=== PATIENT | male | born 1975 | race Caucasian/White ===

== ENCOUNTER 2017-06-07 21:47 | Emergency (ER) | payer OTHER ==
[2017-06-07 21:51] VITALS: BP 136/76; PULSE 88; RESP 18; TEMP 97.4
--- NOTE | 2017-06-07 22:24 | ED ---
General Adult HPI - General Chief complaint: Skin/Abscess/Foreign Body Stated complaint: Rash Time Seen by Provider: 06/07/17 22:03 Source: patient, RN notes reviewed Mode of arrival: ambulatory Limitations: no limitations - History of Present Illness Initial comments: This is a 41-year-old male who presents to the emergency department with chief complaint of rash. Patient states he was seen here previously and was diagnosed with dermatitis. He was prescribed Atarax and steroids. Patient states that the rash began 3 weeks ago on his legs. He reports that today the rash has spread to his back and trunk. Patient states the rash is very itchy. He reports a history of eczema. Denies fever, chills, chest pain, shortness of breath, abdominal pain, nausea or vomiting, constipation or diarrhea, dysuria or hematuria, numbness or tingling, headache or vision changes. - Related Data Previous Rx's Medication Instructions Recorded hydrOXYzine HCL [Atarax] 10 mg PO TID #10 tab 05/28/17 predniSONE 50 mg PO DAILY #5 tab 05/28/17 Betamethasone Dipropionate 1 applic TOPICAL BID #1 tube 06/07/17 [Diprolene 0.05% Ointment] Allergies Allergy/AdvReac Type Severity Reaction Status Date / Time No Known Allergies Allergy Verified 06/07/17 21:50 Review of Systems ROS Statement: Those systems with pertinent positive or pertinent negative responses have been documented in the HPI. ROS Other: All systems not noted in ROS Statement are negative. Past Medical History Past Medical History: No Reported History History of Any Multi-Drug Resistant Organisms: None Reported Past Surgical History: No Surgical Hx Reported Past Psychological History: No Psychological Hx Reported Smoking Status: Never smoker Past Alcohol Use History: None Reported Past Drug Use History: None Reported General Exam - General Exam Comments Initial Comments: General: Awake and alert, well-developed; in no apparent distress. HEENT: Head atraumatic, normocephalic. Pupils are equal, round and reactive to light. Extraocular movements intact. Neck: Supple. Normal ROM. Cardiovascular: Regular rate and rhythm. No murmurs, rubs or gallops. Chest symmetrical. Respiratory: Lungs clear to auscultation bilaterally. No wheezes, rales or rhonchi. Normal respiratory effort with no use of accessory muscles. Skin: [place], warm and dry. Generalized erythematous, scaly maculopapular rash with overlying excoriations on bilateral lower extremities, back and trunk. Neurological: Alert and oriented x3. CN II-XII grossly intact. Speech is fluent and answers are appropriate. No focal neuro deficits. Psychiatric: Normal mood and affect. No overt signs of depression or anxiety noted. Limitations: no limitations Course Vital Signs 06/07/17 21:47 Temperature 97.4 F L Pulse Rate 88 Respiratory 18 Rate Blood Pressure 136/76 O2 Sat by Pulse 99 Oximetry Medical Decision Making - Medical Decision Making This is a 41-year-old male who presents with chief complaint of rash. Patient was seen here in the emergency department on 05/28/17 and was prescribed steroids and Atarax for itching. Patient has since followed up with primary care provider who refilled his prescriptions. Rash has been progressing and has not gotten any better with this treatment. Patient states that he is taking Benadryl but all it does is make him tired. Patient will be discharged home with a prescription for a topical steroid to be applied twice daily for the next 2 weeks. Patient informed that if no improvement is seen in 2 weeks that he is highly recommended to follow-up with dermatology. Patient is in agreement to the plan and voiced understanding. All questions were answered. Disposition Clinical Impression: Atopic dermatitis Disposition: HOME SELF-CARE Condition: Good Instructions: Eczema (ED) Additional Instructions: Please apply topical steroid two times per day for the next 2 weeks. After 2 weeks, if no improvement is seen please follow up with dermatology. Please follow up with primary care provider within 1-2 days. Return to emergency department if symptoms should worsen or any concerns arise. Prescriptions: Betamethasone Dipropionate [Diprolene 0.05% Ointment] 1 applic TOPICAL BID #1 tube Referrals: Del Roblero MD [Primary Care Provider] - 1-2 days Time of Disposition: 22:34
== END 2017-06-07 22:42 | disposition home or self-care (01) ==
LOC: EC 21:47
DX: L20.9 Atopic dermatitis, unspecified (principal)
CPT/HCPCS: 99282

== ENCOUNTER 2017-11-26 15:39 | Emergency (ER) | payer OTHER ==
--- NOTE | 2017-11-26 17:58 | CT ---
EXAMINATION TYPE: CT brain my [facility] DATE OF EXAM: 11/26/2017 COMPARISON: NONE HISTORY: Patient fell today. Probable LOC. Patient complains of headache and neck pain post fall. CT DLP: 1680 mGycm Automated exposure control for dose reduction was used. TECHNIQUE: CT scan of the head and cervical spine are performed without contrast. FINDINGS: There is no acute intracranial hemorrhage, mass effect, or midline shift identified. The ventricles and sulci are within normal limits in size. The globes are intact and the visualized sin uses are clear. Cervical spine is visualized in its entirety from C1 through upper thoracic levels and demonstrates s atisfactory alignment without evidence of acute fracture or dislocation. Prevertebral soft tissue ap pears within normal limits. The C1-C2 articulation is unremarkable. IMPRESSION: 1. There is no acute fracture or dislocation evident in the cervical spine. 2. No acute intracranial hemorrhage, mass effect, or midline shift is seen.
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
--- NOTE | 2017-11-26 18:57 | XR ---
PROCEDURE: XR thoracic spine complete, 3V DATE AND TIME: 11/26/2017 6:02 PM REFERRING PHYSICIAN: Nash Sparrow CLINICAL INDICATION: PHH, Pain TECHNIQUE: Department protocol. COMPARISON: None FINDINGS: There is no fracture or malalignment. The soft tissues are unremarkable. IMPRESSION: NO ACUTE PROCESS.
--- NOTE | 2017-11-26 18:58 | XR ---
PROCEDURE: XR lumbar spine 3V DATE AND TIME: 11/26/2017 6:02 PM REFERRING PHYSICIAN: Nash Sparrow CLINICAL INDICATION: PHH, Pain TECHNIQUE: Department protocol. COMPARISON: 04/17/2015 FINDINGS: There is no fracture or malalignment. The soft tissues are unremarkable. IMPRESSION: NO ACUTE PROCESS.
--- NOTE | 2017-11-26 19:00 | XR ---
PROCEDURE: XR ribs RT w pa chest xray, total 5 views DATE AND TIME: 11/26/2017 6:02 PM REFERRING PHYSICIAN: Nash Sparrow CLINICAL INDICATION: PHH, Pain TECHNIQUE: Department protocol. COMPARISON: None FINDINGS: There is no fracture or malalignment. The soft tissues are unremarkable. Lungs are clear an d the pleural spaces are negative. IMPRESSION: NO ACUTE PROCESS.
[2017-11-26 19:44] VITALS: BP 144/83; PULSE 81; RESP 16; TEMP 98.3
== END 2017-11-26 19:43 | disposition home or self-care (01) ==
LOC: EC 15:39
DX: M54.2 Cervicalgia (principal); R07.81 Pleurodynia; R51 Headache; M54.9 Dorsalgia, unspecified; R40.2412 Glasgow coma scale score 13-15, at arrival to emergency department; X39.8XXA Other exposure to forces of nature, initial encounter; Y93.89 Activity, other specified; Y92.89 Other specified places as the place of occurrence of the external cause
CPT/HCPCS: 70450; 72072; 72100; 72125; 99284

== ENCOUNTER 2018-06-24 06:53 | Emergency (ER) | payer OTHER ==
[2018-06-24 06:59] VITALS: RESP 18
--- NOTE | 2018-06-24 07:23 | ED ---
General Adult HPI - General Chief complaint: Extremity Problem,Nontraumatic Stated complaint: leg pain Time Seen by Provider: 06/24/18 07:11 Source: patient, RN notes reviewed Mode of arrival: ambulatory Limitations: no limitations - History of Present Illness Initial comments: Patient is a pleasant 43-year-old male presenting to the emergency Department with complaints of left leg discomfort. Onset of symptoms was yesterday evening. Discomfort has been steady. No injury to the affected area. Patient states discomfort is left lateral upper thigh. Discomfort is somewhat improved with movement. Discomfort is rated 8/10. No rash. No swelling. No fever. No trauma. No weakness. No back pain. - Related Data Home Medications Medication Instructions Recorded Confirmed Ibuprofen [Motrin Ib] 400 mg PO Q6H PRN 06/24/18 06/24/18 Previous Rx's Medication Instructions Recorded Cyclobenzaprine [Flexeril] 10 mg PO TID PRN #12 tablet 06/24/18 Allergies Allergy/AdvReac Type Severity Reaction Status Date / Time No Known Allergies Allergy Verified 06/24/18 08:13 Review of Systems ROS Statement: Those systems with pertinent positive or pertinent negative responses have been documented in the HPI. ROS Other: All systems not noted in ROS Statement are negative. Constitutional: Denies: fever Eyes: Denies: eye pain ENT: Denies: ear pain Respiratory: Denies: cough, dyspnea Cardiovascular: Denies: chest pain Endocrine: Denies: fatigue Gastrointestinal: Denies: abdominal pain Genitourinary: Denies: dysuria Musculoskeletal: Denies: back pain Skin: Denies: rash, lesions Neurological: Denies: headache Past Medical History Past Medical History: No Reported History History of Any Multi-Drug Resistant Organisms: None Reported Past Surgical History: No Surgical Hx Reported Past Psychological History: Depression, PTSD Smoking Status: Never smoker Past Alcohol Use History: None Reported Past Drug Use History: None Reported General Exam Limitations: no limitations General appearance: alert, in no apparent distress Head exam: Present: atraumatic Eye exam: Present: normal appearance, PERRL ENT exam: Present: normal oropharynx Neck exam: Present: normal inspection Respiratory exam: Present: normal lung sounds bilaterally Cardiovascular Exam: Present: regular rate, normal rhythm Expanded Peripheral pulses: 2+: Dorsalis Pedis (R), Dorsalis Pedis (L) GI/Abdominal exam: Present: soft. Absent: tenderness Extremities exam: Present: full ROM, tenderness (Mild tenderness left lateral thigh.), other (No swelling. No erythema.). Absent: pedal edema, calf tenderness Back exam: Present: normal inspection. Absent: tenderness, vertebral tenderness Neurological exam: Present: alert. Absent: motor sensory deficit Psychiatric exam: Present: normal affect, normal mood Skin exam: Present: normal color Course Vital Signs 06/24/18 06/24/18 06:56 10:06 Temperature 97.9 F 98 F Pulse Rate 71 68 Respiratory 18 18 Rate Blood Pressure 114/77 114/84 O2 Sat by Pulse 100 97 Oximetry Disposition Clinical Impression: Leg pain Disposition: HOME SELF-CARE Instructions: Leg Pain (ED) Prescriptions: Cyclobenzaprine [Flexeril] 10 mg PO TID PRN #12 tablet PRN Reason: Pain Is patient prescribed a controlled substance at d/c from ED?: No Referrals: Del Roblero MD [Primary Care Provider] - 1-2 days
--- NOTE | 2018-06-24 08:02 | XR ---
EXAMINATION TYPE: XR femur LT DATE OF EXAM: 06/24/2018 CLINICAL HISTORY: Pain. TECHNIQUE: Two views of the left femur are obtained. COMPARISON: None FINDINGS: There is no acute fracture or dislocation seen in the left femur. The left hip and knee j oints appear within normal limits. The overlying soft tissue appears unremarkable. IMPRESSION: Unremarkable study.
--- NOTE | 2018-06-24 09:01 | US ---
EXAMINATION TYPE: US venous doppler duplex LE LT DATE OF EXAM: 06/24/2018 8:39 AM COMPARISON: NONE CLINICAL HISTORY: Pain. Left lateral posterior thigh pain today; denies swelling and trauma SIDE PERFORMED: Left TECHNIQUE: The lower extremity deep venous system is examined utilizing real time linear array sonog terrence with graded compression, doppler sonography and color-flow sonography. VESSELS IMAGED: Common Femoral Vein Deep Femoral Vein Greater Saphenous Vein * Femoral Vein: dual femoral vein noted upper left Popliteal Vein Small Saphenous Vein * Proximal Calf Veins (* superficial vessels) Left Leg: Negative for DVT IMPRESSION: 1. No evidence for DVT.
[2018-06-24] MEDS ORDERED: ORPHENADRINE 30 MG/ML 2 ML VIAL IM STA (09:21)
[2018-06-24 10:07] VITALS: BP 114/84; PULSE 68; TEMP 98
== END 2018-06-24 10:07 | disposition home or self-care (01) ==
LOC: EC 06:53
DX: M79.605 Pain in left leg (principal)
CPT/HCPCS: 96372; 99284

== ENCOUNTER 2019-02-11 09:34 | Emergency (ER) | payer OTHER ==
[2019-02-11 09:47] VITALS: BP 98/64; PULSE 70; RESP 18; TEMP 98
[2019-02-11] MEDS ORDERED: KETOROLAC 30 MG/ML 1 ML VIAL IM STA (10:09)
--- NOTE | 2019-02-11 10:11 | ED ---
General Adult HPI - General Chief complaint: Extremity Injury, Lower Stated complaint: Ankle Injury Time Seen by Provider: 02/11/19 10:01 Source: patient Mode of arrival: wheelchair Limitations: no limitations - History of Present Illness Initial comments: Patient is a 43-year-old male presents emergency department for left ankle pain. Patient reports she was playing softball last night when he slid into second base and rolled his ankle. Patient reports edema but denies erythema or skin discoloration. She reports pain is exacerbated with any movement or weightbearing and alleviated at rest. Patient has limited range of motion due to pain. Patient denies any numbness or tingling. Patient reports pain is an 8 and throbbing. Patient reports taking 2 tramadol to alleviate the symptoms. - Related Data Home Medications Medication Instructions Recorded Confirmed Ibuprofen [Motrin Ib] 400 mg PO Q6H PRN 06/24/18 06/24/18 Previous Rx's Medication Instructions Recorded Cyclobenzaprine [Flexeril] 10 mg PO TID PRN #12 tablet 06/24/18 Allergies Allergy/AdvReac Type Severity Reaction Status Date / Time No Known Allergies Allergy Verified 02/11/19 09:44 Review of Systems ROS Statement: Those systems with pertinent positive or pertinent negative responses have been documented in the HPI. ROS Other: All systems not noted in ROS Statement are negative. Past Medical History Past Medical History: No Reported History History of Any Multi-Drug Resistant Organisms: None Reported Past Surgical History: No Surgical Hx Reported Past Psychological History: Anxiety, Depression, PTSD Smoking Status: Never smoker Past Alcohol Use History: None Reported Past Drug Use History: None Reported General Exam - General Exam Comments Initial Comments: General: Well-developed well-nourished distress HEENT: Normocephalic/atraumatic, PERLL, pharynx erythema, swallowing well, EAC no erythema, no exudates, TM clear, no cervical lymph nodes Neck: Supple, nontender, trachea midline Chest/Lungs: Normal respirations, no signs of respiratory distress clear to auscultation bilaterally no wheezes, rales, rhonchi Cardiac: Regular rate and rhythm, normal S1-S2, no murmurs rubs or gallops Abdomen/GI: Soft nontender, bowel sounds equal or quadrant x4, no guarding, no rebound no CVA tenderness Musculoskeletal: Tenderness along the left lateral and medial malleoli. No midfoot tenderness. +2 dorsalis pedis and posterior tibialis bilaterally, limited range of motion due to pain, left ankle edema but no erythema or skin discoloration. Skin: [place], no rashes or lesions, no cyanosis or diaphoresis Neurologic: AAO x 3, CN 2-12 intact, Psychiatric: Mood and affect normal, judgment normal Limitations: no limitations Course Vital Signs 02/11/19 09:44 Temperature 98.0 F Pulse Rate 70 Respiratory 18 Rate Blood Pressure 98/64 O2 Sat by Pulse 98 Oximetry Procedures - Orthopedic Splinting/Casting Injury #1 Side: left Lower Extremity Injury Location: ankle Lower Extremity Immobilizer: stirrup splint (Plastic ankle stirrup.), Abel wrap Other Orthopedic Equipment: crutches Medical Decision Making - Medical Decision Making Patient is a 42-year-old male presenting to emergency Department with left ankle pain. X-ray of the left ankle is negative for acute fractures or dislocations but it does show a possible old ankle injury in the deltoid ligament region. Abel wrap and stirrup for placed. Patient advised to keep ice compress and alternate between Tylenol and ibuprofen for pain control. Patient advised to keep foot elevated. Patient advised to follow-up with an male infertility specialist. Strict return parameters were thoroughly discussed the patient was understanding and agreeable. Case discussed with physician. Disposition Clinical Impression: Ankle sprain Disposition: HOME SELF-CARE Condition: Stable Instructions (If sedation given, give patient instructions): Ankle Sprain (ED) Additional Instructions: Please follow with male infertility specialist. Please return to emergency department if symptoms worsen. Alternate between Tylenol and ibuprofen for pain control. Keep ice compress to minimize swelling and keep foot elevated. Use crutches and avoid weightbearing. Is patient prescribed a controlled substance at d/c from ED?: No Referrals: Del Roblero MD [Primary Care Provider] - 1-2 days Adelso Segovia MD [STAFF PHYSICIAN] - 1-2 days Time of Disposition: 10:42
--- NOTE | 2019-02-11 10:24 | XR ---
EXAMINATION TYPE: XR ankle complete LT , 3 VIEWS DATE OF EXAM ORDERED: 02/11/2019 HISTORY: Pain. COMPARISON: None. FINDINGS: There is soft tissue swelling about the ankle. There is slight cortical irregularity at th e expected location of the deltoid ligament. This may relate to previous injury. No acute fracture or dislocation is seen. No ankle joint effusion is seen. IMPRESSION: 1. NO ACUTE OSSEOUS LESION. QUESTIONABLE OLD INJURY.
== END 2019-02-11 10:57 | disposition home or self-care (01) ==
LOC: EC 09:34
DX: S93.402A Sprain of unspecified ligament of left ankle, initial encounter (principal); X50.1XXA Overexertion from prolonged static or awkward postures, initial encounter; Y93.64 Activity, baseball
CPT/HCPCS: 73610; 99283; 29515; 96372; L4350; J1885

== ENCOUNTER 2019-02-11 21:41 | Emergency (ER) | payer OTHER ==
[2019-02-11] MEDS ORDERED: ACET/COD 300 MG/30 MG STARTER PACK 6 TAB BTL PO STA (21:59)
--- NOTE | 2019-02-11 22:01 | ED ---
Lower Extremity Injury HPI - General Chief Complaint: Extremity Injury, Lower Stated Complaint: Ankle injury Time Seen by Provider: 02/11/19 21:50 Source: patient, family Mode of arrival: ambulatory Limitations: no limitations - History of Present Illness Initial Comments: 43-year-old male patient presents to the emergency department today for evaluation of increasing swelling and ecchymosis to the left ankle. Patient was seen and evaluated here earlier today was diagnosed with a sprained ankle. Patient did have x-rays performed which showed no evidence for fracture. Patient states that he had increase in pain and noticed bruising developing along the foot so presented here for reevaluation. Patient states he has been wearing the Abel wrap, splint, and elevating. Patient is taking ibuprofen but states it doesn't seem to help much. He denies any new injury. States he has been remaining nonweightbearing. Has had a previous sprain with tendon damage in the past. Patient denies any headache, neck pain, back pain, chest pain, shortness of breath, dizziness, weakness, abdominal pain, nausea, vomiting, or difficulties with bowel movements or urination. - Related Data Home Medications Medication Instructions Recorded Confirmed traMADol HCL [Ultram] 50 mg PO DAILY PRN 02/11/19 02/11/19 Allergies Allergy/AdvReac Type Severity Reaction Status Date / Time No Known Allergies Allergy Verified 02/11/19 22:29 Review of Systems ROS Statement: Those systems with pertinent positive or pertinent negative responses have been documented in the HPI. ROS Other: All systems not noted in ROS Statement are negative. Past Medical History Past Medical History: No Reported History History of Any Multi-Drug Resistant Organisms: None Reported Past Surgical History: No Surgical Hx Reported Past Psychological History: Anxiety, Depression, PTSD Smoking Status: Never smoker Past Alcohol Use History: None Reported Past Drug Use History: None Reported General Exam Limitations: no limitations General appearance: alert, in no apparent distress, other (Physical well- developed, well-nourished adult male patient in no acute distress. Vital signs upon presentation are temperature 98.8F, pulse 82, respirations 20, blood pressure 121/78, pulse ox 100% on room air.) Eye exam: Present: normal appearance, PERRL, EOMI. Absent: scleral icterus, conjunctival injection, periorbital swelling ENT exam: Present: normal exam, normal oropharynx, mucous membranes moist Respiratory exam: Present: normal lung sounds bilaterally. Absent: respiratory distress, wheezes, rales, rhonchi, stridor Cardiovascular Exam: Present: regular rate, normal rhythm, normal heart sounds. Absent: systolic murmur, diastolic murmur, rubs, gallop, clicks Extremities exam: Present: full ROM, tenderness (Tenderness over the medial lateral malleolus), normal capillary refill, other (Patient has generalized swelling surrounding the left ankle. There is ecchymosis noted along the medial aspect of the ankle. Skin is otherwise pink, warm, and dry. Cap refills less than 3 seconds. Pedal pulses are 2+ and equal bilaterally.). Absent: normal inspection, pedal edema, joint swelling, calf tenderness Neurological exam: Present: alert, oriented X3, CN II-XII intact Psychiatric exam: Present: normal affect, normal mood Skin exam: Present: warm, dry, intact, normal color. Absent: rash Course Vital Signs 02/11/19 02/11/19 21:43 22:26 Temperature 98.8 F 98 F Pulse Rate 82 77 Respiratory 20 18 Rate Blood Pressure 121/78 120/75 O2 Sat by Pulse 100 98 Oximetry Medical Decision Making - Medical Decision Making 43-year-old male patient presents to the emergency department today for evaluation of increasing swelling, pain, bruising to the left ankle. Physical examination did reveal swelling surrounding the left medial lateral malleolus. There is ecchymosis noted along the medial aspect of the ankle. There is no proximal tib-fib tenderness. Neurovascular status is intact. X-ray from earlier today was reviewed and showed no evidence for fracture. Patient does have ankle stirrup splint and Abel wrap in place. He is given a prescription for crutches. Patient has been taking ibuprofen. I did discuss that the moment of bruising is not abnormal with his diagnosis. He has educated regarding rest, ice, elevation. He is instructed to follow-up with orthopedics as directed. We'll add Tylenol with Codeine starter pack for increased pain control. Return parameters were discussed in detail. He verbalizes understanding and agrees with this plan. Disposition Clinical Impression: Left ankle sprain Disposition: HOME SELF-CARE Condition: Good Instructions (If sedation given, give patient instructions): Ankle Sprain (ED), R.I.C.E. Treatment (ED) Additional Instructions: Wear splint for comfort and support. Keep leg elevated, rest, ice. Take Tylenol Motrin for pain control. Take Tylenol 3 sparingly as needed for severe pain. Follow-up with orthopedics for further evaluation as soon as possible. Have repeat x-ray performed in 7-10 days if pain symptoms persist. Return to the emergency department immediately for any new, worsening, or concerning symptoms. Is patient prescribed a controlled substance at d/c from ED?: No Referrals: Del Roblero MD [Primary Care Provider] - 1-2 days Adelso Segovia MD [STAFF PHYSICIAN] - 1-2 days Time of Disposition: 22:00
[2019-02-11 22:26] VITALS: BP 120/75; PULSE 77; RESP 18; TEMP 98
== END 2019-02-11 22:30 | disposition home or self-care (01) ==
LOC: EC 21:41
DX: S93.402A Sprain of unspecified ligament of left ankle, initial encounter (principal); X58.XXXA Exposure to other specified factors, initial encounter
CPT/HCPCS: 99283

== ENCOUNTER 2019-04-12 18:03 | Emergency (ER) | payer OTHER ==
[2019-04-12 18:22] VITALS: RESP 18
[2019-04-12] MEDS ORDERED: KETOROLAC 60 MG/2 ML VIAL IM STA (18:44)
--- NOTE | 2019-04-12 19:08 | XR ---
EXAMINATION TYPE: XR lumbar spine 2 or 3V DATE OF EXAM: 04/12/2019 COMPARISON: 11/26/2017 HISTORY: Lifting injury. Pain TECHNIQUE: 3 views FINDINGS: Lumbar vertebra have normal alignment. Posterior elements are intact. Sacroiliac joints are intact. IMPRESSION: Negative lumbar spine exam. No change.
--- NOTE | 2019-04-12 20:04 | ED ---
General Adult HPI - General Chief complaint: Back Pain/Injury Stated complaint: back pain Time Seen by Provider: 04/12/19 18:29 Source: patient, RN notes reviewed, old records reviewed Limitations: no limitations - History of Present Illness Initial comments: 43-year-old male patient with no pertinent past medical history: Presents to ED with chief complaint of left paralumbar back pain radiating down in his posterior left leg. Patient reports that he was helping a coworker lift a heavy spring he felt no pain, however directly after he began feeling tightness and pain in left paralumbar region. Patient denies any loss of bowel or bladder control, lower extremity weakness, saddle anesthesia. Patient denies any other complaints at this time. Systemic: Pt denies fatigue, fever/chills, rash. Pt denies weakness, night sweats, weight loss. Neuro: Pt denies headache, visual disturbances, syncope or pre-syncope. HEENT: Pt denies ocular discharge or irritation, otalgia, rhinorrhea, pharyngitis or notable lymphadenopathy. Cardiopulmonary: Pt denies chest pain, SOB, heart palpitations, dyspnea on exertion. Abdominal/GI: Pt denies abdominal pain, n/v/d. : Pt denies dysuria, burning w/ urination, frequency/urgency. Denies new onset urinary or bowel incontinence. MSK: Pt denies loss of strength or function in extremities. Neuro: Pt denies new onset weakness. - Related Data Home Medications Medication Instructions Recorded Confirmed traMADol HCL [Ultram] 50 mg PO DAILY PRN 02/11/19 02/11/19 Previous Rx's Medication Instructions Recorded Cyclobenzaprine [Flexeril] 1 - 2 tab PO TID PRN #20 tablet 04/12/19 Ibuprofen [Motrin] 600 mg PO Q6HR PRN #40 day 04/12/19 predniSONE 50 mg PO DAILY #5 tab 04/12/19 Allergies Allergy/AdvReac Type Severity Reaction Status Date / Time No Known Allergies Allergy Verified 04/12/19 18:19 Review of Systems ROS Statement: Those systems with pertinent positive or pertinent negative responses have been documented in the HPI. ROS Other: All systems not noted in ROS Statement are negative. Past Medical History Past Medical History: No Reported History History of Any Multi-Drug Resistant Organisms: None Reported Past Surgical History: No Surgical Hx Reported Past Psychological History: Anxiety, Depression, PTSD Smoking Status: Never smoker Past Alcohol Use History: None Reported Past Drug Use History: None Reported General Exam - General Exam Comments Initial Comments: Constitutional: NAD, AOX3, Pt has pleasant affect. HEENT: NC/AT, trachea midline, neck supple, no lymphadenopathy. Posterior pharynx non erythematous, without exudates. External ears appear normal, without discharge. Mucous membranes moist. Eyes PERRLA, EOM intact. There is no scleral icterus. No pallor noted. Cardiopulmonary: RRR, no murmurs, rubs or gallops, no JVD noted. Lungs CTAB in anterior and posterior castrejon. No peripheral edema. Abdominal exam: Abdomen soft and non-distended. Abdomen non-tender to palpation in all 4 quadrants. Bowel sounds active in LLQ. No hepatosplenomegaly. No ecchymosis Neuro: CN II-XII grossly intact. No nuchal rigidity. No raccon eyes, no arzola sign, no hemotympanum. No cervical spinal tenderness. MSK: 5 out of 5 strength lower extremities bilaterally. Sensation intact. Ambulatory without difficulty. Left paralumbar region mildly tender to palpation. No posterior calf tenderness bilaterally, homans sign negative bilaterally. Posterior tibialis and radial pulse +2 bilaterally. Sensation intact in upper and lower extremities. Full active ROM in upper and lower extremities, 5/5 stregnth. Limitations: no limitations Course Vital Signs 04/12/19 18:19 Temperature 98.3 F Pulse Rate 91 Respiratory 18 Rate Blood Pressure 113/80 O2 Sat by Pulse 98 Oximetry Medical Decision Making - Medical Decision Making 43-year-old male patient with no pertinent past medical history: Presents to ED with chief complaint of left paralumbar back pain radiating down in his posterior left leg. Patient reports that he was helping a coworker lift a heavy spring he felt no pain, however directly after he began feeling tightness and pain in left paralumbar region. Patient denies any loss of bowel or bladder control, lower extremity weakness, saddle anesthesia. Patient denies any other complaints at this time. Pt VSS, afebrile. Physical exam displayed: 5 out of 5 strength lower extremities bilaterally. Sensation intact. Ambulatory without difficulty. Left paralumbar region mildly tender to palpation. Plain film of lumbar spine didn't display acute process. Patient was discharged with muscle relaxers, burst steroids, and will use ibuprofen at home. Patient is already established [facility] issues and will follow up with them. From precautions discussed. Case discussed with Dr. Hogan. Disposition Clinical Impression: Lumbar back pain Disposition: HOME SELF-CARE Condition: Stable Instructions (If sedation given, give patient instructions): Acute Low Back Pain (ED) Additional Instructions: Patient to adhere to previously discussed treatment plan and will take medication(s) as directed. Patient to follow up with PCP in 1-2 days. Patient to return to ED if symptoms do not improve. Follow-up [facility] tomorrow, take medication as directed. Return to ER if condition worsens. Prescriptions: Cyclobenzaprine [Flexeril] 1 - 2 tab PO TID PRN #20 tablet PRN Reason: muscle spasm Ibuprofen [Motrin] 600 mg PO Q6HR PRN #40 day PRN Reason: Pain predniSONE 50 mg PO DAILY #5 tab Is patient prescribed a controlled substance at d/c from ED?: No Referrals: Shemar Norton MD [Primary Care Provider] - 1-2 days Reagan Calle MD [STAFF PHYSICIAN] - 1-2 days
[2019-04-12 20:41] VITALS: BP 113/64; PULSE 70; TEMP 98.5
== END 2019-04-12 20:40 | disposition home or self-care (01) ==
LOC: EC 18:03
DX: M54.5 Low back pain (principal); M79.605 Pain in left leg; X50.0XXA Overexertion from strenuous movement or load, initial encounter; Y93.89 Activity, other specified
CPT/HCPCS: 72100; 99284; 96372; J1885

== ENCOUNTER → 2019-05-27 | Outpatient (CLI) | payer OTHER ==
[2019-05-27 11:18] LABS: Basophils # (A) 0.1 k/uL (0-0.2); Basophils % (A) 1 %; Eosinophils # (A) 0.2 k/uL (0-0.7); Eosinophils % (A) 3 %; HCT 45.7 % (39.0-53.0); HGB 15.5 gm/dL (13.0-17.5); Lymphocytes # (A) 1.6 k/uL (1.0-4.8); Lymphocytes % (A) 23 %; MCH 30.4 pg (25.0-35.0); MCV 89.5 fL (80.0-100.0); Mean Platelet Volume 6.3; Monocytes # (A) 0.4 k/uL (0-1.0); Monocytes % (A) 6 %; Neutrophils # (A) 4.7 k/uL (1.3-7.7); Neutrophils % (A) 65 %; Platelet Count 267 k/uL (150-450); RDW 12.2 % (11.5-15.5); WBC 7.2 k/uL (3.8-10.6)
[2019-05-27 17:50] LABS: African American GFR (CKD) 106.4 (60.0-200.0); Albumin 4.6 g/dL (3.80-4.90); Albumin/Globulin Ratio 2.09 (1.60-3.17); Anion Gap 9.1 mmol/L (4.00-12.00); Calcium 9.3 mg/dL (8.7-10.3); Carbon Dioxide 27.9 mmol/L (21.6-31.8); Chol/HDL Ratio 4.7; Globulin 2.2 g/dL (1.6-3.3); LDL Cholesterol,Calculated 110.2 mg/dL (0.0-131.0); Potassium 4.4 mmol/L (3.5-5.5); Total Bilirubin 0.9 mg/dL (0.2-1.2); Total Protein 6.8 g/dL (6.2-8.2); VLDL Calculation 26.8 mg/dL (5.00-40.00)
[2019-05-27 18:48] LABS: Hemoglobin A1C 5.7 % (4.0-6.0)
== END | disposition home or self-care (01) ==
LOC: LABWHC1 09:40
PROVIDERS: ATTEND Physician Assistant
DX: Z00.00 Encounter for general adult medical examination without abnormal findings (principal); Z13.1 Encounter for screening for diabetes mellitus
CPT/HCPCS: 36415; 80053; 80061; 83036; 84439; 84443; 85025

== ENCOUNTER 2019-08-20 22:18 | Emergency (ER) | payer OTHER ==
[2019-08-20] MEDS ORDERED: ACETAMINOPHEN TAB 500 MG TAB PO STA (23:44)
[2019-08-20] MEDS ORDERED: ONDANSETRON ODT 4 MG TAB PO STA (23:56)
--- NOTE | 2019-08-21 00:17 | ED ---
General Adult HPI - General Chief complaint: Nausea/Vomiting/Diarrhea Stated complaint: Fever, Vomiting Time Seen by Provider: 08/20/19 23:41 Source: patient Mode of arrival: ambulatory Limitations: no limitations - History of Present Illness Initial comments: Dictation was produced using [employer] dictation software. please excuse any grammatical, word or spelling errors. Chief Complaint: 44-year-old male with a runny nose and fever. History of Present Illness: 44-year-old male presents today with fever since last night. Today he felt like his symptoms are getting worse. He had just gotten home from [employer] after he was shopping with dizziness and other. He states he did not feel well went home felt like "dog dung." Patient has been around other sick individuals. Denies any medical problems. Denies any chest pain. No shortness of breath. Has mild cough. Does have some sore throat. He was an individual who had strep throat that he was recently exposed to. The ROS documented in this emergency department record has been reviewed and confirmed by me. Those systems with pertinent positive or negative responses gordon ve been documented in the HPI. All other systems are other negative and/or noncontributory. PHYSICAL EXAM: General Impression: Alert and oriented x3, not in acute distress HEENT: Normocephalic atraumatic, extra-ocular movements intact, pupils equal and reactive to light bilaterally, mucous membranes moist, mild posterior oropharynx erythema, rhinorrhea Cardiovascular: Heart regular rate and rhythm, S1&S2 audible, no murmurs, rubs or gallops Chest: Lungs clear to auscultation bilaterally, no rhonchi, no wheeze, no rales Abdomen: Bowel sounds present, abdomen soft, non-tender, non-distended, no organomegaly Musculoskeletal: Pulses present and equal in all extremities, no peripheral edema Motor: no focal deficits noted Neurological: CN II-XII grossly intact, no focal motor or sensory deficits noted Skin: Intact with no visualized rashes Psych: Normal affect and mood ED course: 44-year-old male with URI type symptoms. vital signs upon arrival shows temperature 101.0, heart rate 1:15, worse vital signs with acceptable limits. Influenza test negative. Group A strep is negative. Chest x-ray is nonacute. Patient reevaluated at bedside after given antipyretics with improvement of v ital signs. Patient's clinical presentation likely secondary to viral URI. Patient advised to take [id number] antipyretics for symptoms. He is told this maintained good hydration. Otherwise he is advised to follow-up with primary care physician. Patient told to return to emergency department or seek medical attention if his symptoms get worse. Some agreeable to plan. Patient discharged. - Related Data Home Medications Medication Instructions Recorded Confirmed traMADol HCL [Ultram] 50 mg PO DAILY PRN 02/11/19 02/11/19 Previous Rx's Medication Instructions Recorded Cyclobenzaprine [Flexeril] 1 - 2 tab PO TID PRN #20 tablet 04/12/19 Ibuprofen [Motrin] 600 mg PO Q6HR PRN #40 day 04/12/19 predniSONE 50 mg PO DAILY #5 tab 04/12/19 Allergies Allergy/AdvReac Type Severity Reaction Status Date / Time No Known Allergies Allergy Verified 08/20/19 22:38 Review of Systems ROS Statement: Those systems with pertinent positive or pertinent negative responses have been documented in the HPI. ROS Other: All systems not noted in ROS Statement are negative. Past Medical History Past Medical History: No Reported History History of Any Multi-Drug Resistant Organisms: None Reported Past Surgical History: No Surgical Hx Reported Past Psychological History: Anxiety, Depression, PTSD Smoking Status: Never smoker Past Alcohol Use History: None Reported Past Drug Use History: None Reported General Exam Limitations: no limitations Course Vital Signs 08/20/19 08/21/19 22:35 01:05 Temperature 101.0 F H 99.6 F Pulse Rate 115 H 93 Respiratory 20 18 Rate Blood Pressure 108/67 113/56 O2 Sat by Pulse 97 96 Oximetry Medical Decision Making - Lab Data Lab Results 08/20/19 08/21/19 Range/Units 23:23 00:05 Influenza Type A RNA Not Detected (Not Detectd) Influenza Type B (PCR) Not Detected (Not Detectd) Group A Strep Rapid Negative (Negative) Disposition Clinical Impression: URI (upper respiratory infection) Disposition: HOME SELF-CARE Condition: Good Instructions (If sedation given, give patient instructions): Viral Syndrome (ED) Is patient prescribed a controlled substance at d/c from ED?: No Referrals: None,Stated [Primary Care Provider] - 1-2 days Time of Disposition: 01:33
[2019-08-21 01:06] VITALS: BP 113/56; PULSE 93; RESP 18; TEMP 99.6
--- NOTE | 2019-08-21 01:22 | XR ---
EXAMINATION TYPE: XR chest 2V DATE OF EXAM: 08/21/2019 COMPARISON: 11/26/2017 HISTORY: Fever TECHNIQUE: FINDINGS: Heart and mediastinum are normal. Lungs are clear. Diaphragm is normal. Bony thorax appears normal. IMPRESSION: Normal chest. No change.
== END 2019-08-21 01:54 | disposition home or self-care (01) ==
LOC: EC 22:18
DX: J06.9 Acute upper respiratory infection, unspecified (principal)
CPT/HCPCS: 71046; 87081; 87430; 87502; 99284

== ENCOUNTER 2020-09-13 19:12 | Emergency (ER) | payer OTHER ==
[2020-09-13 19:17] VITALS: BP 123/89; PULSE 75; RESP 18; TEMP 98.3
--- NOTE | 2020-09-13 19:51 | XR ---
EXAMINATION TYPE: XR foot complete LT DATE OF EXAM: 09/13/2020 COMPARISON: NONE HISTORY: Pain TECHNIQUE: 3 views FINDINGS: Metatarsals are intact. I see no fracture nor dislocation. Joint spaces are normal. There a re no erosions. IMPRESSION: Negative left foot exam.
--- NOTE | 2020-09-13 20:08 | ED ---
Extremity Problem HPI - General Chief complaint: Extremity Problem,Nontraumatic Stated complaint: Foot pain Time Seen by Provider: 09/13/20 19:19 Source: patient Mode of arrival: ambulatory Limitations: no limitations - History of Present Illness Initial comments: 45-year-old male presents to the emergency room with chief complaint of left foot pain. He states his been ongoing for the past week. States the pain is exacerbated with ambulation and starts around the heel and radiates distally to the toes. Denies any injury to the foot. Denies any numbness or tingling. Hhe reports full range of motion and ankle and denies any ecchymosis, erythema or swelling to the region. 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 - Related Data Home Medications Medication Instructions Recorded Confirmed traMADol HCL [Ultram] 50 mg PO DAILY PRN 02/11/19 02/11/19 Previous Rx's Medication Instructions Recorded Cyclobenzaprine [Flexeril] 1 - 2 tab PO TID PRN #20 tablet 04/12/19 Ibuprofen [Motrin] 600 mg PO Q6HR PRN #40 day 04/12/19 predniSONE 50 mg PO DAILY #5 tab 04/12/19 Trolamine Salicylate/Aloe Vera 1 applic TOPICAL BID #1 bottle 09/13/20 [Aspercreme 10% Cream] Allergies Allergy/AdvReac Type Severity Reaction Status Date / Time No Known Allergies Allergy Verified 09/13/20 19:18 Review of Systems ROS Statement: Those systems with pertinent positive or pertinent negative responses have been documented in the HPI. ROS Other: All systems not noted in ROS Statement are negative. Past Medical History Past Medical History: No Reported History History of Any Multi-Drug Resistant Organisms: None Reported Past Surgical History: Tonsillectomy Past Psychological History: Anxiety, Depression, PTSD Smoking Status: Former smoker Past Alcohol Use History: None Reported Past Drug Use History: None Reported General Exam Limitations: no limitations General appearance: alert, in no apparent distress Head exam: Present: atraumatic, normocephalic, normal inspection Eye exam: Present: normal appearance, PERRL, EOMI Pupils: Present: normal accommodation ENT exam: Present: normal exam, normal oropharynx, mucous membranes moist Neck exam: Present: normal inspection, full ROM. Absent: tenderness Respiratory exam: Present: normal lung sounds bilaterally. Absent: respiratory distress Cardiovascular Exam: Present: regular rate, normal rhythm, normal heart sounds Extremities exam: Present: normal inspection, full ROM, tenderness (mild midfoot and fifth metatarsal tenderness no signs of ecchymosis or erythema or swelling. No other signs of trauma.), normal capillary refill, other (palpable DP and PT bilaterally. No calf tenderness bilaterally.). Absent: pedal edema, joint swelling, calf tenderness Back exam: Present: normal inspection, full ROM. Absent: tenderness Neurological exam: Present: alert, oriented X3 Psychiatric exam: Present: normal affect, normal mood Skin exam: Present: warm, dry, intact, normal color Course Vital Signs 09/13/20 19:14 Temperature 98.3 F Pulse Rate 75 Respiratory 18 Rate Blood Pressure 123/89 O2 Sat by Pulse 100 Oximetry Medical Decision Making - Medical Decision Making 45-year-old male presents to the emergency department with a chief complaint of left foot pain. On physical examination, patient is neurovascularly intact. X- rays negative. Abel wrap applied. Advised to rest, ice, compression and elevation. Advised to follow-up with retail service specialist. will be discharged with Aspercreme. Return parameters discussed the patient was understanding and agreeable. Case discussed with Dr. Menendez Disposition Clinical Impression: Left foot pain Disposition: HOME SELF-CARE Condition: Stable Instructions (If sedation given, give patient instructions): Arthralgia (ED) Additional Instructions: Follow-up with retail service specialist. Return to emergency department if symptoms worsen. Alternate between Tylenol and Motrin for pain control. Medication as directed. Prescriptions: Trolamine Salicylate/Aloe Vera [Aspercreme 10% Cream] 1 applic TOPICAL BID #1 bottle Is patient prescribed a controlled substance at d/c from ED?: No Referrals: Markel Maldonado MD [Primary Care Provider] - 1-2 days Time of Disposition: 20:12
== END 2020-09-13 20:36 | disposition home or self-care (01) ==
LOC: EC 19:12
DX: M79.672 Pain in left foot (principal); F41.9 Anxiety disorder, unspecified; F32.9 Major depressive disorder, single episode, unspecified; Z87.891 Personal history of nicotine dependence
CPT/HCPCS: 99283

== ENCOUNTER 2020-10-16 20:38 | Emergency (ER) | payer OTHER ==
[2020-10-16 21:23] VITALS: BP 105/71; PULSE 103; RESP 22; TEMP 100.7
--- NOTE | 2020-10-16 21:47 | XR ---
EXAMINATION TYPE: XR chest 2V DATE OF EXAM: 10/16/2020 COMPARISON: 08/21/2019. HISTORY: Cough. TECHNIQUE: Frontal and lateral views of the chest are obtained. FINDINGS: There is no focal air space opacity, pleural effusion, or pneumothorax seen. The cardiac silhouette size is within normal limits. The osseous structures are intact. IMPRESSION: No acute cardiopulmonary process.
[2020-10-16] MEDS ORDERED: ONDANSETRON ODT 4 MG TAB PO STA (22:17)
[2020-10-16] MEDS ORDERED: AMOXICILLIN 875 MG TAB PO STA (22:18)
--- NOTE | 2020-10-16 22:19 | ED ---
General Adult HPI - General Chief complaint: Shortness of Breath Stated complaint: SOB, Vomiting Time Seen by Provider: 10/16/20 22:02 Source: patient Mode of arrival: ambulatory - History of Present Illness Initial comments: This patient is a 45-year-old man who presents to be evaluated for constellation of symptoms that started nearly 2 days ago now. He states that symptoms began with sinus congestion and postnasal drainage. He developed a cough as well. After having the postnasal drainage he began having some gagging and vomiting. Today he started having fevers as well. He attempted to go to the urgent care clinic but he states it was too busy for them to see him. Patient denies dyspnea, chest pain, abdominal pain, change in urination or bowel movements -: days(s) Consistency: constant Improves with: none Worsens with: none Associated Symptoms: cough Treatments Prior to Arrival: none - Related Data Home Medications Medication Instructions Recorded Confirmed traMADol HCL [Ultram] 50 mg PO DAILY PRN 02/11/19 02/11/19 Previous Rx's Medication Instructions Recorded Cyclobenzaprine [Flexeril] 1 - 2 tab PO TID PRN #20 tablet 04/12/19 Ibuprofen [Motrin] 600 mg PO Q6HR PRN #40 day 04/12/19 predniSONE 50 mg PO DAILY #5 tab 04/12/19 Trolamine Salicylate/Aloe Vera 1 applic TOPICAL BID #1 bottle 09/13/20 [Aspercreme 10% Cream] Amoxicillin 875 mg PO Q12HR #14 tablet 10/16/20 Ondansetron Odt [Zofran ODT] 4 mg PO Q8HR PRN #10 tab 10/16/20 Allergies Allergy/AdvReac Type Severity Reaction Status Date / Time No Known Allergies Allergy Verified 10/16/20 21:24 Review of Systems ROS Statement: Those systems with pertinent positive or pertinent negative responses have been documented in the HPI. ROS Other: All systems not noted in ROS Statement are negative. Constitutional: Reports: fever. Denies: chills, weakness Eyes: Denies: eye pain ENT: Reports: throat pain, congestion. Denies: ear pain, epistaxis Respiratory: Reports: cough. Denies: dyspnea, wheezes, hemoptysis Cardiovascular: Denies: chest pain, palpitations, edema, syncope Endocrine: Reports: fatigue Gastrointestinal: Reports: vomiting. Denies: abdominal pain, nausea, diarrhea, constipation Genitourinary: Denies: dysuria, hematuria Musculoskeletal: Denies: back pain Skin: Denies: rash Neurological: Denies: headache, weakness, numbness Past Medical History Past Medical History: No Reported History History of Any Multi-Drug Resistant Organisms: None Reported Past Surgical History: Tonsillectomy Past Psychological History: Anxiety, Depression, PTSD Smoking Status: Former smoker Past Alcohol Use History: None Reported Past Drug Use History: None Reported General Exam General appearance: alert, in no apparent distress Head exam: Present: atraumatic, normocephalic Eye exam: Present: normal appearance. Absent: scleral icterus, conjunctival injection ENT exam: Present: mucous membranes moist. Absent: normal oropharynx (There is some cobblestoning of the pharynx) Neck exam: Present: normal inspection, full ROM. Absent: tenderness, menin gismus, lymphadenopathy Respiratory exam: Present: normal lung sounds bilaterally. Absent: respiratory distress, wheezes, rales, rhonchi, stridor Cardiovascular Exam: Present: regular rate, normal rhythm, normal heart sounds. Absent: systolic murmur, diastolic murmur, rubs, gallop GI/Abdominal exam: Present: soft. Absent: distended, tenderness, guarding, rebound, rigid, mass, pulsatile mass, hernia Extremities exam: Present: normal inspection, normal capillary refill. Absent: pedal edema, calf tenderness Back exam: Present: normal inspection. Absent: CVA tenderness (R), CVA tenderness (L) Neurological exam: Present: alert Skin exam: Present: warm, dry, intact, normal color. Absent: rash Course Vital Signs 10/16/20 21:20 Temperature 100.7 F H Pulse Rate 103 H Respiratory 22 Rate Blood Pressure 105/71 O2 Sat by Pulse 96 Oximetry Disposition Clinical Impression: Sinusitis Disposition: HOME SELF-CARE Condition: Good Instructions (If sedation given, give patient instructions): Sinusitis (ED) Prescriptions: Amoxicillin 875 mg PO Q12HR #14 tablet Ondansetron Odt [Zofran ODT] 4 mg PO Q8HR PRN #10 tab PRN Reason: Nausea Is patient prescribed a controlled substance at d/c from ED?: No Referrals: Markel Maldonado MD [Primary Care Provider] - 1-2 days
== END 2020-10-16 22:38 | disposition home or self-care (01) ==
LOC: EC 20:38
DX: U07.1 COVID-19 (principal); J32.9 Chronic sinusitis, unspecified; Z90.89 Acquired absence of other organs; Z87.891 Personal history of nicotine dependence
CPT/HCPCS: 71046; 99285; U0003; U0005

== ENCOUNTER → 2021-05-08 | Outpatient (CLI) | payer OTHER ==
[2021-05-08 14:01] VITALS: BMI 28.5
== END ==
LOC: DBWHC3 13:01
PROVIDERS: ATTEND Nurse Practitioner Acute Care
DX: E11.9 Type 2 diabetes mellitus without complications (principal)

== ENCOUNTER 2021-05-26 20:09 | Emergency (ER) | payer OTHER ==
[2021-05-26 20:29] VITALS: BP 134/80; PULSE 87; RESP 18; TEMP 97.9
--- NOTE | 2021-05-26 20:52 | XR ---
Result: History: Pain. Comparison: None available. Technique: 4 views of the right wrist. Findings: No acute fracture or dislocation is seen. The visualized osseous structures are in anatomic alignmen t. The joint spaces are preserved. Impression: No acute fracture or dislocation.
[2021-05-26] MEDS ORDERED: SODIUM CHLORIDE 0.9% 1,000 ML IV STA (22:09)
[2021-05-26] MEDS ORDERED: KETOROLAC 15 MG/ML 1 ML VIAL IVP STA (22:09)
[2021-05-26] MEDS ORDERED: diphenhydrAMINE 50 MG/ML 1 ML VIAL IVP STA (22:09)
[2021-05-26] MEDS ORDERED: PROCHLORPERAZINE INJ 10 MG/2 ML VIAL IVP STA (22:09)
--- NOTE | 2021-05-26 22:14 | ED ---
Headache HPI - General Chief Complaint: Headache Stated Complaint: Headache Time Seen by Provider: 05/26/21 21:29 Source: RN notes reviewed, old records reviewed Mode of arrival: ambulatory Limitations: no limitations - History of Present Illness Initial Comments: This is a 45-year-old male to the emergency department for evaluation. Patient presents today with symptoms of headache migraine headache today. History of migraines and headaches. No trauma. Patient states she's had persistent nausea vomiting unable to keep his migraine medication down also had right wrist pain no significant injury MD Complaint: headache, "migraine" -: days(s) Onset Description: gradual Location: right, left, frontal Severity: moderate Severity scale (1-10): 8 Quality: aching, throbbing, pulsatile Consistency: constant Improves With: nothing Worsens With: none Context: recent URI Associated Symptoms: nausea, vomiting, photophobia, sensitivity to sound Treatments Prior to Arrival: none - Related Data Home Medications Medication Instructions Recorded Confirmed traMADol HCL [Ultram] 50 mg PO DAILY PRN 02/11/19 02/11/19 Previous Rx's Medication Instructions Recorded Cyclobenzaprine [Flexeril] 1 - 2 tab PO TID PRN #20 tablet 04/12/19 Ibuprofen [Motrin] 600 mg PO Q6HR PRN #40 day 04/12/19 predniSONE 50 mg PO DAILY #5 tab 04/12/19 Trolamine Salicylate/Aloe Vera 1 applic TOPICAL BID #1 bottle 09/13/20 [Aspercreme 10% Cream] Amoxicillin 875 mg PO Q12HR #14 tablet 10/16/20 Ondansetron Odt [Zofran ODT] 4 mg PO Q8HR PRN #10 tab 10/16/20 Allergies Allergy/AdvReac Type Severity Reaction Status Date / Time No Known Allergies Allergy Verified 05/26/21 20:29 Review of Systems ROS Statement: Those systems with pertinent positive or pertinent negative responses have been documented in the HPI. ROS Other: All systems not noted in ROS Statement are negative. Past Medical History Past Medical History: No Reported History History of Any Multi-Drug Resistant Organisms: None Reported Past Surgical History: Tonsillectomy Past Psychological History: Anxiety, Depression, PTSD Smoking Status: Former smoker Past Alcohol Use History: None Reported Past Drug Use History: None Reported General Exam Limitations: no limitations General appearance: alert, in no apparent distress Head exam: Present: atraumatic, normocephalic, normal inspection Eye exam: Present: normal appearance, PERRL, EOMI. Absent: scleral icterus, conjunctival injection, periorbital swelling ENT exam: Present: normal exam, mucous membranes moist Neck exam: Present: normal inspection. Absent: tenderness, meningismus, lymphadenopathy Respiratory exam: Present: normal lung sounds bilaterally. Absent: respiratory distress, wheezes, rales, rhonchi, stridor Cardiovascular Exam: Present: regular rate, normal rhythm, normal heart sounds. Absent: systolic murmur, diastolic murmur, rubs, gallop, clicks GI/Abdominal exam: Present: soft, normal bowel sounds. Absent: distended, tenderness, guarding, rebound, rigid Extremities exam: Present: normal inspection, full ROM, normal capillary refill. Absent: tenderness, pedal edema, joint swelling, calf tenderness Back exam: Present: normal inspection Neurological exam: Present: alert, oriented X3, CN II-XII intact Psychiatric exam: Present: normal affect, normal mood Skin exam: Present: warm, dry, intact, normal color. Absent: rash Course Vital Signs 05/26/21 20:27 Temperature 97.9 F Pulse Rate 87 Respiratory 18 Rate Blood Pressure 134/80 O2 Sat by Pulse 97 Oximetry - Reevaluation(s) Reevaluation #1: 05/26/21 23:05 Medical records reviewed Reevaluation #2: 05/26/21 23:05 Patient symptoms are improved Reevaluation #3: 05/26/21 23:05 Patient informed results and questions have been answered Medical Decision Making - Medical Decision Making 45 male to the emergency department for evaluation headache, acute on chronic migraine headache. Headache is improved, resolved and patient can be discharged home - Radiology Data Radiology results: report reviewed (CT brain and chest x-ray negative for acute disease), image reviewed Disposition Clinical Impression: Migraine headache, Headache Disposition: HOME SELF-CARE Condition: Good Instructions (If sedation given, give patient instructions): Acute Headache (ED) Is patient prescribed a controlled substance at d/c from ED?: No Referrals: Markel Maldonado MD [Primary Care Provider] - 1-2 days
--- NOTE | 2021-05-26 22:51 | CT ---
EXAMINATION TYPE: CT brain wo con DATE OF EXAM: 05/26/2021 COMPARISON: 11/26/2017 HISTORY: [facility] CT DLP: 1103.4 mGycm Automated exposure control for dose reduction was used. Exam performed without contrast. Images obtained of the brain without contrast. Ventricles and sulci appear normal. There is no mass effect or midline shift. There is no sign of int racranial hemorrhage. Calvarium is intact. There is no evidence of cerebral edema. IMPRESSION: Normal unenhanced head CT scan.
== END 2021-05-26 23:10 | disposition home or self-care (01) ==
LOC: EC 20:09
DX: G43.909 Migraine, unspecified, not intractable, without status migrainosus (principal); F41.9 Anxiety disorder, unspecified; F32.9 Major depressive disorder, single episode, unspecified; F43.12 Post-traumatic stress disorder, chronic; Z87.891 Personal history of nicotine dependence; Z90.89 Acquired absence of other organs
CPT/HCPCS: 99284; 96374; 96375 ×2; 96361; 73110; 70450; J1200; J0780; J1885